=== PATIENT | male | born 1995 | race Caucasian/White ===

== ENCOUNTER 2018-12-19 22:40 | Inpatient (IN) | payer MEDICAID ==
[~2018-12-19] VITALS: Ht 172.7 cm; Wt 92.9 kg
[2018-12-20] MEDS ORDERED: morphine 4 MG/ML VIAL IV STA ×2 (06:10→07:13)
[2018-12-20] MEDS ORDERED: SOD CHLORIDE 0.9% 1,000 ML IV STA (06:10)
[2018-12-20] MEDS ORDERED: ONDANSETRON 4 MG INJ IV STA (06:10)
[2018-12-20] MEDS ORDERED: IOHEXOL 300MG/ML 150 ML BTL ONE (06:49)
[2018-12-20] MEDS ORDERED: SOD CHLORIDE 0.9% 100 ML ONE (06:49)
--- NOTE | 2018-12-20 07:10 | EN ---
Date/Time of Note Date/Time of Note DATE: 12/20/18 TIME: 07:08 ER Progress Note I evaluated the patient along with the PA staff. History and evaluation c/w appendicitis. IV abx initiated. Arrangements made with the hospitalists for admission. Dr. Reeder, surgeon stone circular sawyer notified for consultation MIKAELA PARKER Dec 20, 2018 07:10
--- NOTE | 2018-12-20 07:23 | ERD ---
ER Documentation Chief Complaint Chief Complaint C/O RT SIDED AP W/ N/V/D SINCE YESTERDAY HPI 23-year-old male presenting with right-sided abdominal pain with nausea and vomiting times 1 day. Patient had tactile fevers at home. Patient is wanting medications. He describes the pain is mid abdominal extending to the right lower quadrant. Denies other medical problems. NKDA. Surgical history denies. Social history denies ROS All systems reviewed and are negative except as per history of present illness. Allergies Allergies: Coded Allergies: No Known Allergy (Unverified , 12/19/18) PMhx/Soc Medical and Surgical Hx: pt denies Medical Hx, pt denies Surgical Hx Hx Alcohol Use: Yes Hx Substance Use: Yes Hx Tobacco Use: No FmHx Family History: No diabetes, No coronary disease, No other Physical Exam Vitals Vital Signs Date Temp Pulse Resp B/P (MAP) Pulse Ox O2 O2 Flow FiO2 Time Delivery Rate 12/19/18 99.9 109 19 143/81 97 23:00 (101) Physical Exam GENERAL: The patient is well-appearing, well-nourished, in no acute distress CHEST: Clear to auscultation bilaterally. There are no rales, wheezes or rhonchi. HEART: Regular rate and rhythm. No murmurs, clicks, rubs or gallops. ABDOMEN: Normal active bowel sounds. No distention. No organomegaly. Tender t o palpation in the right lower quadrant with rebound tenderness. BACK: CVA tenderness. No flank tenderness SKIN: No rashes Result Diagram: 12/20/18 0640 Results 24 hrs Laboratory Tests Test 12/20/18 06:40 White Blood Count 23.8 10^3/ul Red Blood Count 5.04 10^6/ul Hemoglobin 16.0 g/dl Hematocrit 46.4 % Mean Corpuscular Volume 92.1 fl Mean Corpuscular Hemoglobin 31.7 pg Mean Corpuscular Hemoglobin Concent 34.5 g/dl Red Cell Distribution Width 12.1 % Platelet Count 320 10^3/UL Mean Platelet Volume 10.2 fl Immature Granulocytes % 0.900 % Neutrophils % 80.4 % Lymphocytes % 8.4 % Monocytes % 10.0 % Eosinophils % 0.0 % Basophils % 0.3 % Nucleated Red Blood Cells % 0.0 /100WBC Immature Granulocytes # 0.210 10^3/ul Neutrophils # 19.2 10^3/ul Lymphocytes # 2.0 10^3/ul Monocytes # 2.4 10^3/ul Eosinophils # 0.0 10^3/ul Basophils # 0.1 10^3/ul Nucleated Red Blood Cells # 0.0 10^3/ul Current Medications Medications Dose Sig/Charleen Start Time Status Last (Trade) Ordered Route PRN Stop Time Admin Dose Reason Admin Sodium 1,000 ml @ Q1H STAT 12/20/18 DC 12/20/18 Chloride 1,000 mls/hr IV 06:10 06:35 12/20/18 07:09 Morphine 4 mg ONCE STAT 12/20/18 DC 12/20/18 Sulfate IV 06:10 06:35 (morphine) 12/20/18 06:12 Ondansetron 4 mg ONCE STAT 12/20/18 DC 12/20/18 HCl (Zofran IV 06:10 06:35 Inj) 12/20/18 06:12 IV Flush 10 ml STK-MED 12/20/18 DC (NS 10 ml) ONCE .ROUTE 06:49 12/20/18 06:50 Sodium 100 ml @ ud STK-MED 12/20/18 DC Chloride ONCE .ROUTE 06:49 12/20/18 06:50 Iohexol 150 ml STK-MED 12/20/18 DC (Omnipaque ONCE .ROUTE 06:49 300mg/ ml) 12/20/18 06:50 Piperacillin 100 ml @ ONCE ONCE 12/20/18 Sod/ 200 mls/hr IVPB 07:30 Tazobactam 12/20/18 07:59 Sod Morphine 4 mg ONCE STAT 12/20/18 DC Sulfate IV 07:13 (morphine) 12/20/18 07:14 Procedures/MDM DIAGNOSTIC IMAGING REPORT Patient: JUAN MIGUEL MCCLELLAND : 1995 Age: 23 Sex: M MR #: [id number] DOS: 12/20/18609 Ordering MD: AMOR WHITFIELD PA-C Location: E/R Room/Bed: PROCEDURE: CT Abdomen and pelvis with contrast. CLINICAL INDICATION: Abdominal pain TECHNIQUE: CT scan of the abdomen and pelvis with contrast was performed on a multidetector high-resolution CT scan. The patient was scanned following the uncomplicated intravenous administration of 100 ml Omnipaque-300. Coronal and sagittal reformatted images were obtained from the axial source images. Standard CT of the abdomen pelvis with contrast protocols were performed. The total exam CTDI equals 13.89 mGy and the total exam DLP equals 844.03 mGy- cm. One or more of the following dose reduction techniques were used: - Automated exposure control. - Adjustment of the mA and/or kV according to patient size. Use of iterative reconstruction technique. Dicom images are available COMPARISON: None. FINDINGS: Dilated appendix maximal transverse diameter 2 cm with mild thickened enhancing wall and to appendicoliths with mild periappendiceal induration/stranding and tr robyn fluid consistent with acute appendicitis. Additional small free fluid seen in the inferior abdominal cavity. No localized fluid collection to suggest abscess. Negative free air. No abdominal pelvic lymphadenopathy. Stomach, small bowel and large bowel unremarkable. Liver spleen pancreas adrenal glands and gallbladder unremarkable. No biliary ductal dilation. Kidneys normal in size without calcified calculi hydronephrosis or intra masses bilaterally. No ureteral calcified calculi or dilatation. Contracted urinary bladder otherwise unremarkable. Prostate unremarkable. Lung bases unremarkable. Aorta unremarkable. Abdominal pelvic wall unremarkable. Osseous structures unremarkable without acute osseous findings are osteoblastic/osteolytic lesions. IMPRESSION: 1. Acute appendicitis as described above without free air abscess. 2. Small free fluid in the inferior abdominal cavity. 3. No calcified urinary calculi or obstructive uropathy. Addendum: Physician assistant Duran was telephoned this results on 12/20/2018 at of 0704 hours. ER Course: 1L normal saline given ED. IV morphine given in the ED. Zosyn given ED. Dr. Elliott was alerted of appendicitis diagnosis and will facilitate an admission. Patient stable at time of admission MDM: 23-year-old male presenting with abdominal pain. Patient has findings consistent with appendicitis on CT scan. Patient stable. Patient will be admitted for surgical consultation and higher level of care. I have low suspicion for sepsis. All questions answered at discharge. MELANIA WHITFIELD PA-C Dec 20, 2018 07:23
[2018-12-20] MEDS ORDERED: PIPER-TAZO 3.375 GM IV (PMX) 100 ML IVPB ONE (07:30)
[2018-12-20 09:30] VITALS: BP 135/75; PULSE 95; RESP 18
[2018-12-20 10:45] VITALS: Ht 172.7 cm; Wt 92.9 kg
[2018-12-20] MEDS ORDERED: LORAZEPAM 2 MG INJ IV PRN (11:30)
[2018-12-20] MEDS ORDERED: hydrALAzine 20 MG INJ IV PRN (11:30)
[2018-12-20] MEDS ORDERED: DOCUSATE SODIUM 100 MG CAP PO PRN (11:30)
[2018-12-20] MEDS ORDERED: NITROGLYCERIN (SL) 0.4 MG TAB SL PRN (11:30)
[2018-12-20] MEDS ORDERED: ALBUTEROL/IPRATROPIUM (NEB) 3 ML AMP HHN PRN (11:30)
[2018-12-20] MEDS ORDERED: NACL 0.9% 3 ML SYG IV SCH (11:30)
[2018-12-20] MEDS: morphine 2 MG INJ IV PRN ×2 (12:47→17:19)
[2018-12-20] MEDS: SOD CHLORIDE 0.9% 1,000 ML IV SCH ×2 (12:57→21:07)
[2018-12-20] MEDS: PIPER-TAZO 3.375 GM IV (PMX) 100 ML IVPB SCH ×2 (12:57→17:57)
--- NOTE | 2018-12-20 13:38 | HP ---
Date/Time of Note Date/Time of Note DATE: 12/20/18 TIME: 13:36 Assessment/Plan VTE Prophylaxis SCD applied (from Nsg): No SCD contraindicated: other Pharmacological prophylaxis: heparin Lines/Catheters IV Catheter Type (from Nrsg): Saline Lock Assessment/Plan Hospital Course Assessment and plan: 23-year-old male coming with abdominal pain nausea vomiting for 1 day with findings of acute appendicitis. #Abdominal pain: Again secondary to acute appendicitis this was final CT scan. Patient also has leukocytosis, although no findings on CT scan of perforation -Continue IV fluids, pain control medications, follow-up TSH, A1c, lipid panel -Continue antibiotics, follow-up surgery recommendations as they have been consulted Result Diagram: 12/20/18 0640 12/20/18 0640 Results 24hrs Laboratory Tests Test 12/20/18 04:57 12/20/18 06:40 12/20/18 07:00 Urine Color NKECHI Urine Clarity SLIGHTLY CLOUDY A Urine pH 6.0 Urine Specific [place] 1.028 Urine Ketones TRACE A Urine Nitrite NEGATIVE Urine Bilirubin NEGATIVE Urine Urobilinogen 2+ H Urine Leukocyte Esterase NEGATIVE Urine Microscopic RBC 92 H Urine Microscopic WBC 3 Urine Mucus MODERATE Urine Hemoglobin 2+ H Urine Glucose NEGATIVE Urine Total Protein 1+ H White Blood Count 23.8 H Red Blood Count 5.04 Hemoglobin 16.0 Hematocrit 46.4 Mean Corpuscular Volume 92.1 Mean Corpuscular Hemoglobin 31.7 Mean Corpuscular 34.5 Hemoglobin Concent Red Cell Distribution Width 12.1 Platelet Count 320 Mean Platelet Volume 10.2 Immature Granulocytes % 0.900 H Neutrophils % 80.4 H Lymphocytes % 8.4 L Monocytes % 10.0 Eosinophils % 0.0 Basophils % 0.3 Nucleated Red Blood Cells % 0.0 Immature Granulocytes # 0.210 H Neutrophils # 19.2 H Lymphocytes # 2.0 Monocytes # 2.4 H Eosinophils # 0.0 Basophils # 0.1 Nucleated Red Blood Cells # 0.0 Sodium Level 143 Potassium Level 3.8 Chloride Level 102 Carbon Dioxide Level 28 Anion Gap 13 Blood Urea Nitrogen 13 Creatinine 0.69 Est Glomerular Filtrat > 60 Rate mL/min Glucose Level 147 Calcium Level 10.2 Total Bilirubin 1.4 H Direct Bilirubin 0.00 Indirect Bilirubin 1.4 H Aspartate Amino 29 Transf (AST/SGOT) Alanine 40 Aminotransferase (ALT/SGPT) Alkaline Phosphatase 78 Total Protein 8.9 H Albumin 5.0 H Globulin 3.90 H Albumin/Globulin Ratio 1.28 Lipase 325 H Free Thyroxine 0.99 HPI/ROS Admit Date/Time Admit Date/Time Dec 20, 2018 at 07:10 Hx of Present Illness 23-year-old male with no significant past medical history who comes in pre senting with right-sided abdominal pain. Patient also had some nonbilious nonbloody vomiting and with nausea times 1 day. Patient states he took his temperature at home and it was as high as 100.3. No upper or lower GI bleeding, diarrhea constipation, chest pain or shortness of breath. The patient came in today he had a CT scan performed that showed signs of acute appendicitis without any free air abscess noted. A call was made out to surgery team to come evaluate the patient. Patient's white blood cell count was also elevated and patient was given IV antibiotics as well. PMH/Family/Social Past Medical History Medications Current Medications IV Flush (NS 3 ml) 3 ml PER PROTOCOL IV ; Start 12/20/18 at 11:30 Ondansetron HCl (Zofran Inj) 4 mg Q6H PRN IV NAUSEA/VOMITING; Start 12/20/18 at 11:30 Acetaminophen (Tylenol Tab) 650 mg Q6H PRN PO .PAIN 1-3 OR TEMP; Start 12/20/18 at 11:30 Acetaminophen/ Hydrocodone Bitart ([place] (5/325)) 1 tab Q6H PRN PO .MOD PAIN 4- 6; Start 12/20/18 at 11:30 Morphine Sulfate (morphine) 2 mg Q4H PRN IV .SEVERE PAIN 7-10 Last administered on 12/20/18at 12:47; Admin Dose 2 MG; Start 12/20/18 at 11:30 Docusate Sodium (Colace) 100 mg Q12H PRN PO .CONSTIPATION; Start 12/20/18 at 11:30 Magnesium Hydroxide (Milk Of Mag) 30 ml DAILY PRN PO .CONSTIPATION; Start 12/20/18 at 11:30 Heparin Sodium (Porcine) (Heparin (5000 Units/1ml)) 5,000 unit Q12 SC ; Start 12/20/18 at 21:00 Lorazepam (Ativan) 0.5 mg Q6H PRN IV ANXIETY; Start 12/20/18 at 11:30 Sodium Chloride 1,000 ml @ 100 mls/hr Q10H IV Last administered on 12/20/18at 12:57; Admin Dose 100 MLS/HR; Start 12/20/18 at 11:07 Albuterol/ Ipratropium (Duoneb) 3 ml Q4H RESP THERAPY PRN HHN SHORTNESS OF BREATH; Start 12/20/18 at 11:30 Piperacillin Sod/ Tazobactam Sod 100 ml @ 200 mls/hr Q6 IVPB Last administered on 12/20/18at 12:57; Admin Dose 200 MLS/HR; Start 12/20/18 at 12:00 Hydralazine HCl (Apresoline) 10 mg Q6H PRN IV ELEVATED BLOOD PRESSURE; Start 12/20/18 at 11:30 Nitroglycerin (Nitroglycerin (Sl Tab) 0.4 Mg) 1 tab Q5M PRN SL ANGINA; Start 12/20/18 at 11:30 Coded Allergies: No Known Allergy (Unverified , 12/19/18) Past Surgical History Past Surgical Hx: other (Unknown) Family History Significant Family History: no pertinent family hx Social History Alcohol Use: none Smoking Status: Never smoker Drug Use: none Exam/Review of Systems Vital Signs Vitals Vital Signs Date Temp Pulse Resp B/P (MAP) Pulse Ox O2 O2 Flow FiO2 Time Delivery Rate 12/20/18 98.9 95 18 135/75 98 Room Air 09:30 (95) Exam Exam GENERAL: Lying in bed, in no acute distress Neck: Supple Respiratory: Clear to auscultation bilaterally. There are no rales, wheezes or rhonchi. HEART: Regular rate and rhythm. No murmurs, clicks, rubs or gallops. ABDOMEN: Normal active bowel sounds. No distention. No organomegaly. Tender to palpation in the right lower quadrant with rebound tenderness. M/S: No lower extremity edema bilaterally Neuro: No focal deficits MIRANDA LAND Dec 20, 2018 13:38
[2018-12-20 14:35] VITALS: BP 136/75; PULSE 105; RESP 19
[2018-12-20] MEDS: ACETAMINOPHEN 325 MG TAB PO PRN (14:49)
[2018-12-20] MEDS: HYDROCODONE/APAP (5/325) TAB PO PRN (15:56)
[2018-12-20] MEDS: ONDANSETRON 4 MG INJ IV PRN (19:45)
[2018-12-20 20:00] VITALS: BP_SYST 128; BP_SYST 144; BP_DIAS 60; BP_DIAS 78; PULSE 105; PULSE 66; RESP 18; RESP 19
[2018-12-20] MEDS: HEPARIN 5,000 UNIT/1 ML VIAL SC SCH (20:11)
[2018-12-20] MEDS ORDERED: BUPIVACAINE 0.25%/EPI (SDV) 30 ML INJ ONE (20:41)
[2018-12-20] MEDS ORDERED: LIDOCAINE 1% (MPF) 30 ML INJ ONE (20:41)
--- NOTE | 2018-12-20 20:54 | CONS ---
Assessment/Plan Assessment/Plan Hospital Course (Demo Recall) 1. Acute abdominal pain 2. Acute nausea vomiting 3. Acute leukocytosis 4. CT with appendicitis and appendicolith (possibly perforated) -IV antibiotics -IV fluids -N.p.o. -OR for appendectomy 5. BMI 31 -Encourage nutrition and exercise optimization eventually 6. Regular alcohol use with history of alcohol poisoning -Highly encouraged cessation 7. Abnormal bilirubin and amylase may be secondary to acute process -Trend Thank you very much for consulting me in this patient's care, Consultation Date/Type/Reason Admit Date/Time Dec 20, 2018 at 07:10 Date of Consultation: Dec 20, 2018 Type of Consult General surgical Reason for Consultation Abdominal pain Leukocytosis Appendicitis and appendicolith Requesting Provider: MIKAELA PARKER Date/Time of Note DATE: 12/20/18 TIME: 20:53 Hx of Present Illness Sha Mckeon is a 23-year-old male with abdominal pain that started sharp and crampy on without any previous history of the same. Pain is mostly in the right side and associated with nonbloody non-bilious vomiting nausea. He had fever with chills. No change in bowel habits, no shortness of breath, no chest pain, no cough, no seizure, no visual or neurologic changes. No dysuria. No trauma or sick contacts. Patient not hungry. He presented today and was found to have significant leukocytosis and CT diagnosis of acute appendicitis with appendicolith. He is admitted placed on antibiotic and surgical consult is obtained further evaluation and treatment. 12 point review of system negative unless addressed in chart Past Medical History BMI 31 Drinks alcohol every other day with history of alcohol poisoning in the past Acute leukocytosis Acute abdominal pain Acute appendicitis with appendicolith possible perforation Elevated lipase Elevated bilirubin Medications Current Medications IV Flush (NS 3 ml) 3 ml PER PROTOCOL IV ; Start 12/20/18 at 11:30 Ondansetron HCl (Zofran Inj) 4 mg Q6H PRN IV NAUSEA/VOMITING Last administered on 12/20/18at 19:45; Admin Dose 4 MG; Start 12/20/18 at 11:30 Acetaminophen (Tylenol Tab) 650 mg Q6H PRN PO .PAIN 1-3 OR TEMP Last administered on 12/20/18at 14:49; Admin Dose 650 MG; Start 12/20/18 at 11:30 Acetaminophen/ Hydrocodone Bitart ([place] (5/325)) 1 tab Q6H PRN PO .MOD PAIN 4- 6 Last administered on 12/20/18at 15:56; Admin Dose 1 TAB; Start 12/20/18 at 11:30 Morphine Sulfate (morphine) 2 mg Q4H PRN IV .SEVERE PAIN 7-10 Last administered on 12/20/18at 17:19; Admin Dose 2 MG; Start 12/20/18 at 11:30 Docusate Sodium (Colace) 100 mg Q12H PRN PO .CONSTIPATION; Start 12/20/18 at 11:30 Magnesium Hydroxide (Milk Of Mag) 30 ml DAILY PRN PO .CONSTIPATION; Start 12/20/18 at 11:30 Heparin Sodium (Porcine) (Heparin (5000 Units/1ml)) 5,000 unit Q12 SC ; Start 12/20/18 at 21:00 Lorazepam (Ativan) 0.5 mg Q6H PRN IV ANXIETY; Start 12/20/18 at 11:30 Sodium Chloride 1,000 ml @ 100 mls/hr Q10H IV Last administered on 12/20/18at 12:57; Admin Dose 100 MLS/HR; Start 12/20/18 at 11:07 Albuterol/ Ipratropium (Duoneb) 3 ml Q4H RESP THERAPY PRN HHN SHORTNESS OF BREATH; Start 12/20/18 at 11:30 Piperacillin Sod/ Tazobactam Sod 100 ml @ 200 mls/hr Q6 IVPB Last administered on 12/20/18at 17:57; Admin Dose 200 MLS/HR; Start 12/20/18 at 12:00 Hydralazine HCl (Apresoline) 10 mg Q6H PRN IV ELEVATED BLOOD PRESSURE; Start 12/20/18 at 11:30 Nitroglycerin (Nitroglycerin (Sl Tab) 0.4 Mg) 1 tab Q5M PRN SL ANGINA; Start 12/20/18 at 11:30 Allergies: Coded Allergies: No Known Allergy (Unverified , 12/19/18) Past Surgical History Past Surgical Hx: no surgical history, other (Unknown) Family History Significant Family History: no pertinent family hx 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 , 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 Alcohol Use: other (2 or 3 drinks every other day) Smoking Status: Never smoker Drug Use: none, marijuana (Social) Exam/Review of Systems Exam Vitals Vital Signs Date Temp Pulse Resp B/P (MAP) Pulse Ox O2 O2 Flow FiO2 Time Delivery Rate 12/20/18 102.9 105 18 144/78 97 20:00 (100) 12/20/18 Room Air 14:35 Constitutional: alert, oriented, obese; No distress Psych: nl mood/affect; No anxiety Head: normocephalic, atraumatic Eyes: nl conjunctiva, EOMI, nl sclera, PERRL ENMT: nl external ears & nose, nl lips & teeth, nl nasal mucosa & septum Neck: supple, non-tender; No jvd Respiratory: normal air movement; No congested cough, No labored breathing, No wheezing Cardiovascular: regular rate and rhythm; No edema Gastrointestinal: soft, rebound or guarding, tender; No firm Genitourinary - Male: nl penis, nl scrotum Musculoskeletal: nl extremities to inspection; No joint tenderness Extremities: normal pulses; No calf tenderness, No edema Neurological: nl mental status, nl speech, nl strength Skin: nl turgor; No rash or lesions, No diaphoresis Lymph: nl lymph nodes, nontender Results Result Diagram: 12/20/18 0640 12/20/18 0640 Results 24hrs Laboratory Tests Test 12/20/18 04:57 12/20/18 06:40 12/20/18 07:00 12/20/18 13:18 Urine Color NKECHI Urine Clarity SLIGHTLY CLOUDY A Urine pH 6.0 Urine Specific 1.028 [place] Urine Ketones TRACE A Urine Nitrite NEGATIVE Urine Bilirubin NEGATIVE Urine 2+ H Urobilinogen Urine Leukocyte NEGATIVE Esterase Urine Microscopic 92 H RBC Urine Microscopic 3 WBC Urine Mucus MODERATE Urine Hemoglobin 2+ H Urine Glucose NEGATIVE Urine Total 1+ H Protein White Blood Count 23.8 H Red Blood Count 5.04 Hemoglobin 16.0 Hematocrit 46.4 Mean Corpuscular 92.1 Volume Mean Corpuscular 31.7 Hemoglobin Mean Corpuscular 34.5 Hemoglobin Concen t Red Cell 12.1 Distribution Width Platelet Count 320 Mean Platelet 10.2 Volume Immature 0.900 H Granulocytes % Neutrophils % 80.4 H Lymphocytes % 8.4 L Monocytes % 10.0 Eosinophils % 0.0 Basophils % 0.3 Nucleated Red 0.0 Blood Cells % Immature 0.210 H Granulocytes # Neutrophils # 19.2 H Lymphocytes # 2.0 Monocytes # 2.4 H Eosinophils # 0.0 Basophils # 0.1 Nucleated Red 0.0 Blood Cells # Sodium Level 143 Potassium Level 3.8 Chloride Level 102 Carbon Dioxide 28 Level Anion Gap 13 Blood Urea 13 Nitrogen Creatinine 0.69 Est Glomerular > 60 Filtrat Rate mL/min Glucose Level 147 Calcium Level 10.2 Total Bilirubin 1.4 H Direct Bilirubin 0.00 Indirect 1.4 H Bilirubin Aspartate Amino 29 Transf (AST/SGOT) Alanine 40 Aminotransferase (ALT/SGPT) Alkaline 78 Phosphatase Total Protein 8.9 H Albumin 5.0 H Globulin 3.90 H Albumin/Globulin 1.28 Ratio Lipase 325 H Free Thyroxine 0.99 Prothrombin Time 14.6 Prothrombin Time 1.1 Ratio INR International 1.13 Normalized Ratio Activated 33.0 Partial Thrombopl ast Time Medications Medication Current Medications IV Flush (NS 3 ml) 3 ml PER PROTOCOL IV ; Start 12/20/18 at 11:30 Ondansetron HCl (Zofran Inj) 4 mg Q6H PRN IV NAUSEA/VOMITING Last administered on 12/20/18at 19:45; Admin Dose 4 MG; Start 12/20/18 at 11:30 Acetaminophen (Tylenol Tab) 650 mg Q6H PRN PO .PAIN 1-3 OR TEMP Last administered on 12/20/18at 14:49; Admin Dose 650 MG; Start 12/20/18 at 11:30 Acetaminophen/ Hydrocodone Bitart ([place] (5/325)) 1 tab Q6H PRN PO .MOD PAIN 4- 6 Last administered on 12/20/18at 15:56; Admin Dose 1 TAB; Start 12/20/18 at 11:30 Morphine Sulfate (morphine) 2 mg Q4H PRN IV .SEVERE PAIN 7-10 Last administered on 12/20/18at 17:19; Admin Dose 2 MG; Start 12/20/18 at 11:30 Docusate Sodium (Colace) 100 mg Q12H PRN PO .CONSTIPATION; Start 12/20/18 at 11:30 Magnesium Hydroxide (Milk Of Mag) 30 ml DAILY PRN PO .CONSTIPATION; Start 12/20/18 at 11:30 Heparin Sodium (Porcine) (Heparin (5000 Units/1ml)) 5,000 unit Q12 SC ; Start 12/20/18 at 21:00 Lorazepam (Ativan) 0.5 mg Q6H PRN IV ANXIETY; Start 12/20/18 at 11:30 Sodium Chloride 1,000 ml @ 100 mls/hr Q10H IV Last administered on 12/20/18at 12:57; Admin Dose 100 MLS/HR; Start 12/20/18 at 11:07 Albuterol/ Ipratropium (Duoneb) 3 ml Q4H RESP THERAPY PRN HHN SHORTNESS OF BREATH; Start 12/20/18 at 11:30 Piperacillin Sod/ Tazobactam Sod 100 ml @ 200 mls/hr Q6 IVPB Last administered on 12/20/18at 17:57; Admin Dose 200 MLS/HR; Start 12/20/18 at 12:00 Hydralazine HCl (Apresoline) 10 mg Q6H PRN IV ELEVATED BLOOD PRESSURE; Start 12/20/18 at 11:30 Nitroglycerin (Nitroglycerin (Sl Tab) 0.4 Mg) 1 tab Q5M PRN SL ANGINA; Start 12/20/18 at 11:30 AMY ARAGON MD Dec 20, 2018 20:54
[2018-12-20] MEDS ORDERED: ACETAMINOPHEN 1000MG/100ML IV 100 ML IVPB ONE (21:00)
--- NOTE | 2018-12-20 22:53 | PREAC ---
Date/Time of Note Date/Time of Note DATE: 12/20/18 TIME: 22:53 Anesthesia Eval and Record Evaluation Time Pre-Procedure Interview DATE: 12/20/18 TIME: 22:53 Age 23 Sex male NPO: 8 hrs Preoperative diagnosis appendicitis Planned procedure Lap appy Past Medical History Past Medical History: Includes GI: Obesity Surgery & Anesthesia Issues No known issue Meds Anticoagulation: No Beta Poncho within 24 hr: No Reason Beta Poncho not given: Pt. not on B-Poncho Current Medications IV Flush (NS 3 ml) 3 ml PER PROTOCOL IV ; Start 12/20/18 at 11:30 Ondansetron HCl (Zofran Inj) 4 mg Q6H PRN IV NAUSEA/VOMITING Last administered on 12/20/18at 19:45; Admin Dose 4 MG; Start 12/20/18 at 11:30 Acetaminophen (Tylenol Tab) 650 mg Q6H PRN PO .PAIN 1-3 OR TEMP Last administered on 12/20/18at 14:49; Admin Dose 650 MG; Start 12/20/18 at 11:30 Acetaminophen/ Hydrocodone Bitart ([place] (5/325)) 1 tab Q6H PRN PO .MOD PAIN 4- 6 Last administered on 12/20/18at 15:56; Admin Dose 1 TAB; Start 12/20/18 at 11:30 Morphine Sulfate (morphine) 2 mg Q4H PRN IV .SEVERE PAIN 7-10 Last administered on 12/20/18at 17:19; Admin Dose 2 MG; Start 12/20/18 at 11:30 Docusate Sodium (Colace) 100 mg Q12H PRN PO .CONSTIPATION; Start 12/20/18 at 11:30 Magnesium Hydroxide (Milk Of Mag) 30 ml DAILY PRN PO .CONSTIPATION; Start 12/20/18 at 11:30 Heparin Sodium (Porcine) (Heparin (5000 Units/1ml)) 5,000 unit Q12 SC ; Start 12/20/18 at 21:00 Lorazepam (Ativan) 0.5 mg Q6H PRN IV ANXIETY; Start 12/20/18 at 11:30 Sodium Chloride 1,000 ml @ 100 mls/hr Q10H IV Last administered on 12/20/18at 12:57; Admin Dose 100 MLS/HR; Start 12/20/18 at 11:07 Albuterol/ Ipratropium (Duoneb) 3 ml Q4H RESP THERAPY PRN HHN SHORTNESS OF BREATH; Start 12/20/18 at 11:30 Piperacillin Sod/ Tazobactam Sod 100 ml @ 200 mls/hr Q6 IVPB Last administered on 12/20/18at 17:57; Admin Dose 200 MLS/HR; Start 12/20/18 at 12:00 Hydralazine HCl (Apresoline) 10 mg Q6H PRN IV ELEVATED BLOOD PRESSURE; Start 12/20/18 at 11:30 Nitroglycerin (Nitroglycerin (Sl Tab) 0.4 Mg) 1 tab Q5M PRN SL ANGINA; Start 12/20/18 at 11:30 Meds reviewed: Yes Allergies Coded Allergies: No Known Allergy (Unverified , 12/19/18) Allergies Reviewed: Yes Labs/Studies Labs Reviewed: Reviewed by anesthesiologist Result Diagram: 12/20/18 0640 12/20/18 0640 Laboratory Tests 12/20/18 06:40 test: N/A Pre-procedure Exam Last vitals Vital Signs Date Temp Pulse Resp B/P (MAP) Pulse Ox O2 O2 Flow FiO2 Time Delivery Rate 12/20/18 98.8 66 19 128/60 96 20:00 (82) 12/20/18 Room Air 14:35 Airway: Adequate mouth opening, Adequate thyromental dist Mallampati: Mallampati II Teeth: Normal Lung: Normal Heart: Normal ASA Physical Status ASA physical status: 2 Emergency: None Planned Anesthetic General/MAC: ETT Nerve block: TAP (bilateral) Pre-operative Attestations Prior to commencing anesthesia and surgery, the patient was re-evaluated, there was verification of: *The patient's identity *The results of appropriate recent lab work and preoperative vital signs *The above evaluation not changing prior to induction *Anesthetic plan, risk benefits, alternative and complications discussed with patient/family; questions answered; patient/family understands, accepts and wishes to proceed. MAYANK SALGUERO Dec 20, 2018 22:53
[2018-12-20] MEDS ORDERED: ALBUTEROL 0.083% (NEB) 2.5 MG/3 ML AMP HHN PRN (23:00)
[2018-12-20] MEDS ORDERED: ONDANSETRON 4 MG INJ IV PRN (23:00)
[2018-12-20] MEDS ORDERED: HYDROmorphONE 1 MG/5 ML IV SYRINGE IV PRN ×3 (23:00)
[2018-12-20] MEDS ORDERED: DIPHENHYDRAMINE 50 MG INJ IV PRN (23:00)
[2018-12-20] MEDS ORDERED: FENTAnyl 50 MCG/ML VIAL IV PRN ×3 (23:00)
[2018-12-20] MEDS ORDERED: MEPERIDINE 25 MG INJ IV PRN (23:00)
[2018-12-20] MEDS ORDERED: METOCLOPRAMIDE 10 MG INJ IV PRN (23:00)
[2018-12-20] MEDS ORDERED: ROPIVACAINE 0.5 % 30 ML VIAL ONE (23:11)
[2018-12-20] MEDS ORDERED: FENTAnyl 50 MCG/ML VIAL ONE (23:11)
--- NOTE | 2018-12-20 23:37 | OPR ---
Date/Time of Note Date/Time of Note DATE: 12/20/18 TIME: 23:37 Operative Report Free Text/Dictation Preoperative Diagnosis 1. Acute appendicitis with appendicolith and probable perforation 2. BMI 31 Postoperative Diagnosis 1. Acute appendicitis with appendicolith and perforation with at least 300 mL's of pus throughout the abdomen 2. Gangrenous appendix 3. BMI 31 Operation Performed 1. Laparoscopic appendectomy and washout 2. Local [place], [address] Surgeon: AMY ARAGON MD Host/Hostess Restaurant: None Anesthesia: general (Plus local plus regional) Anesthesiologist: Taye Lipscomb MD Estimated Blood Loss: 10 ml's Specimens: Appendix Tubes/Drains 19 F Francisco Complications: None Pt Condition Post Procedure: stable Disposition: PACU Indications: Per consult note. Risks include but are not limited to bleeding, infection, abscess, seroma, leak, damage to intestines or any intra-abdominal/intrapelvic structures, hernia formation, chronic pain, need for re-operations or further surgeries, KS, stroke, PE, DVT, pneumonia, organ failures, or even . Procedure Note: Patient was brought into the operating room, placed supine on the operating table, SCDs were placed, left arm was tucked, all pressure points were well- padded, preoperative antibiotics administered, and after induction of anesthesia, patient was prepped and draped in usual sterile fashion, and timeout was performed. Incision was made supraumbilically and the Veress needle was safely place into the abdomen. After negative sip test, abdomen was insufflated to 15 mmHg with CO2. At this point Veress was removed and the 5 mm blunt trocar was placed into the abdomen. Laparoscopy was performed and no injuries were identified using a 5 mm 30 scope. Under direct visualization another 5 mm port was placed and left lower quadrant and 12 mm port and suprapubic region avoiding the bladder. All incision sites were injected with quarter percent Marcaine with 1% lidocaine with epi. There is pus throughout the abdomen which was immediately suctioned out and through the course of the operation several liters of warm saline were used for irrigation and suctioning of the fluid throughout the abdomen. Patient was placed in Trendelenburg and right side up. The appendix was found to be gangrenously inflamed with evidence of perforation. The base was dean sected using Endo LOUIS white load automatic 35 mm stapler just on the cecum. The trevor were fired fully. The mesoappendix was transected with another white load stapler. Hemostasis was fully obtained. The appendix was placed in an Endo Catch bag and removed through the suprapubic port site. That fascia was closed with Endo Close and 0 Vicryl in a [id number] manner avoiding the bladder. 19 [place] Francisco was placed to the left lower quadrant into the pelvis and right gutter and secured with 2-0 nylon. Ports and CO2 were removed under direct visualization, wounds were fully irrigated, and skin was closed with skin trevor. Dressings were applied. All counts were correct and the end of the operation 2. Patient was extubated and transferred to recovery room in stable condition. AMY ARAGON MD Dec 20, 2018 23:37
[2018-12-21] VITALS (16 sets, daily range): BP systolic 137–164; BP diastolic 63–83; PULSE 86–120; RESP 15–24
[2018-12-21] MEDS ORDERED: PROPOFOL 20 ML ONE (00:10)
[2018-12-21] MEDS ORDERED: SUCCINYLCHOLINE CHLORIDE 100 MG/5 ML SYG IV ONE (00:10)
[2018-12-21] MEDS ORDERED: FENTAnyl 50 MCG/ML VIAL ONE (00:10)
[2018-12-21] MEDS ORDERED: ROCURONIUM 50 MG INJ ONE (00:10)
[2018-12-21] MEDS ORDERED: LIDOCAINE 100 MG SYRINGE ONE (00:10)
[2018-12-21] MEDS ORDERED: SUGAMMADEX SODIUM 200 MG/2 ML VIAL IV ONE (00:10)
[2018-12-21] MEDS: ONDANSETRON 4 MG INJ IV PRN (01:19)
[2018-12-21] MEDS: PIPER-TAZO 3.375 GM IV (PMX) 100 ML IVPB SCH ×6 (01:22→23:52)
[2018-12-21] MEDS: SOD CHLORIDE 0.9% 1,000 ML IV SCH ×4 (01:58→23:52)
[2018-12-21] MEDS: morphine 2 MG INJ IV PRN ×5 (04:07→20:07)
[2018-12-21] MEDS: PANTOPRAZOLE (EC) 40 MG TAB PO SCH (06:05)
[2018-12-21] MEDS: HEPARIN 5,000 UNIT/1 ML VIAL SC SCH ×2 (08:03→20:13)
[2018-12-21] MEDS: HYDROCODONE/APAP (5/325) TAB PO PRN ×2 (09:26→18:03)
--- NOTE | 2018-12-21 13:23 | PN ---
Date/Time of Note Date/Time of Note DATE: 12/21/18 TIME: 13:18 Assessment/Plan VTE Prophylaxis Risk score (from Ns)>0 risk: 2 SCD applied (from [facility]): No SCD contraindicated: other Pharmacological prophylaxis: heparin Lines/Catheters IV Catheter Type (from [facility]): Peripheral IV Assessment/Plan Hospital Course S: Patient underwent surgical operation yesterday for what turned out to be a perforated appendicitis. Patient started on clear liquid diet now O: VS- see below PE: GENERAL: Lying in bed, in no acute distress Neck: Supple Respiratory: Clear to auscultation bilaterally. There are no rales, wheezes or rhonchi. HEART: Regular rate and rhythm. No murmurs, clicks, rubs or gallops. ABDOMEN: Normal active bowel sounds. No distention. No organomegaly. LUANNE drain in place. M/S: No lower extremity edema bilaterally Neuro: No focal deficits Date/Time of Note Date/Time of Note DATE: 12/20/18 TIME: 23:37 Operative Report Free Text/Dictation Preoperative Diagnosis 1. Acute appendicitis with appendicolith and probable perforation 2. BMI 31 Postoperative Diagnosis 1. Acute appendicitis with appendicolith and perforation with at least 300 mL's of pus throughout the abdomen 2. Gangrenous appendix 3. BMI 31 Operation Performed 1. Laparoscopic appendectomy and washout 2. [place] anesthetic [place], [id number] Assessment and plan: 23-year-old male coming with abdominal pain nausea vomiting for 1 day with findings of acute appendicitis,POD # 1 appendectomy for perforated appendicitis. #Abdominal pain: Again secondary to acute appendicitis this was final CT scan- status post appendectomy for perforated appendicitis -Continue to monitor white blood cell count which is trending down, no fevers now, follow final culture results -Continue IV fluids, pain control medications, broad-spectrum antibiotics -Diet per surgery recommendations Result Diagram: 12/21/18 0613 12/21/18 0613 Results 24hrs Laboratory Tests Test 12/21/18 06:13 White Blood Count 11.6 #H Red Blood Count 4.39 L Hemoglobin 14.0 Hematocrit 41.7 L Mean Corpuscular Volume 95.0 Mean Corpuscular Hemoglobin 31.9 Mean Corpuscular Hemoglobin Concent 33.6 Red Cell Distribution Width 12.6 Platelet Count 193 # Mean Platelet Volume 10.4 Immature Granulocytes % 0.300 Neutrophils % Segmented Neutrophils % (Manual) 52 Band Neutrophils % (Manual) 36 H Lymphocytes % Lymphocytes % (Manual) 4 L Reactive Lymphocytes % (Manual) 3 H Monocytes % Monocytes % (Manual) 5 Eosinophils % Basophils % Nucleated Red Blood Cells % 0.0 Immature Granulocytes # 0.040 H Neutrophils # Neutrophils # (Manual) 6.5 Band Neutrophils # 4.1 H Lymphocytes (Manual) 0.4 L Lymphocytes # Reactive Lymphocytes # 0.3 H Monocytes # Monocytes # (Manual) 0.5 Eosinophils # Basophils # Nucleated Red Blood Cells # Platelet Estimate NORMAL Polychromasia 1+ Poikilocytosis 1+ Sodium Level 141 Potassium Level 4.3 Chloride Level 104 Carbon Dioxide Level 30 Anion Gap 7 Blood Urea Nitrogen 17 Creatinine 0.80 Est Glomerular Filtrat Rate mL/min > 60 Glucose Level 141 Hemoglobin A1c 5.3 Calcium Level 9.0 Phosphorus Level 3.4 Magnesium Level 2.1 Total Bilirubin 1.7 H Direct Bilirubin 0.00 Indirect Bilirubin 1.7 H Aspartate Amino Transf (AST/SGOT) 27 Alanine Aminotransferase (ALT/SGPT) 32 Alkaline Phosphatase 45 Total Protein 6.4 # Albumin 3.5 # Globulin 2.90 Albumin/Globulin Ratio 1.20 Triglycerides Level 45 Cholesterol Level 112 LDL Cholesterol, Calculated 60 HDL Cholesterol 43 Cholesterol/HDL Ratio 2.6 Thyroid Stimulating Hormone (TSH) 0.348 L Exam/Review of Systems Exam Vitals Vital Signs Date Temp Pulse Resp B/P (MAP) Pulse Ox O2 O2 Flow FiO2 Time Delivery Rate 12/21/18 99.2 97 20 155/80 95 07:53 (105) 12/21/18 3.0 02:41 12/21/18 Nasal 01:47 Cannula Intake and Output 12/20/18 12/20/18 12/21/18 1515:00 23:00 07:00 IntakeIntake Total 100 ml 100 ml 1520 ml OutputOutput Total 595 ml BalanceBalance 100 ml 100 ml 925 ml Results Results 24hrs Laboratory Tests Test 12/21/18 06:13 White Blood Count 11.6 #H Red Blood Count 4.39 L Hemoglobin 14.0 Hematocrit 41.7 L Mean Corpuscular Volume 95.0 Mean Corpuscular Hemoglobin 31.9 Mean Corpuscular Hemoglobin Concent 33.6 Red Cell Distribution Width 12.6 Platelet Count 193 # Mean Platelet Volume 10.4 Immature Granulocytes % 0.300 Neutrophils % Segmented Neutrophils % (Manual) 52 Band Neutrophils % (Manual) 36 H Lymphocytes % Lymphocytes % (Manual) 4 L Reactive Lymphocytes % (Manual) 3 H Monocytes % Monocytes % (Manual) 5 Eosinophils % Basophils % Nucleated Red Blood Cells % 0.0 Immature Granulocytes # 0.040 H Neutrophils # Neutrophils # (Manual) 6.5 Band Neutrophils # 4.1 H Lymphocytes (Manual) 0.4 L Lymphocytes # Reactive Lymphocytes # 0.3 H Monocytes # Monocytes # (Manual) 0.5 Eosinophils # Basophils # Nucleated Red Blood Cells # Platelet Estimate NORMAL Polychromasia 1+ Poikilocytosis 1+ Sodium Level 141 Potassium Level 4.3 Chloride Level 104 Carbon Dioxide Level 30 Anion Gap 7 Blood Urea Nitrogen 17 Creatinine 0.80 Est Glomerular Filtrat Rate mL/min > 60 Glucose Level 141 Hemoglobin A1c 5.3 Calcium Level 9.0 Phosphorus Level 3.4 Magnesium Level 2.1 Total Bilirubin 1.7 H Direct Bilirubin 0.00 Indirect Bilirubin 1.7 H Aspartate Amino Transf (AST/SGOT) 27 Alanine Aminotransferase (ALT/SGPT) 32 Alkaline Phosphatase 45 Total Protein 6.4 # Albumin 3.5 # Globulin 2.90 Albumin/Globulin Ratio 1.20 Triglycerides Level 45 Cholesterol Level 112 LDL Cholesterol, Calculated 60 HDL Cholesterol 43 Cholesterol/HDL Ratio 2.6 Thyroid Stimulating Hormone (TSH) 0.348 L Medications Medication Current Medications IV Flush (NS 3 ml) 3 ml PER PROTOCOL IV ; Start 12/20/18 at 11:30 Ondansetron HCl (Zofran Inj) 4 mg Q6H PRN IV NAUSEA/VOMITING Last administered on 12/21/18 01:19; Admin Dose 4 MG; Start 12/20/18 at 11:30 Acetaminophen (Tylenol Tab) 650 mg Q6H PRN PO .PAIN 1-3 OR TEMP Last admi nistered on 12/20/18at 14:49; Admin Dose 650 MG; Start 12/20/18 at 11:30 Acetaminophen/ Hydrocodone Bitart ([place] (5/325)) 1 tab Q6H PRN PO .MOD PAIN 4- 6 Last administered on 12/21/18at 09:26; Admin Dose 1 TAB; Start 12/20/18 at 11:30 Morphine Sulfate (morphine) 2 mg Q4H PRN IV .SEVERE PAIN 7-10 Last administered on 12/21/18at 11:59; Admin Dose 2 MG; Start 12/20/18 at 11:30 Docusate Sodium (Colace) 100 mg Q12H PRN PO .CONSTIPATION; Start 12/20/18 at 11:30 Magnesium Hydroxide (Milk Of Mag) 30 ml DAILY PRN PO .CONSTIPATION; Start 12/20/18 at 11:30 Heparin Sodium (Porcine) (Heparin (5000 Units/1ml)) 5,000 unit Q12 SC Last administered on 12/21/18at 08:03; Admin Dose 5,000 UNIT; Start 12/20/18 at 21:00 Lorazepam (Ativan) 0.5 mg Q6H PRN IV ANXIETY; Start 12/20/18 at 11:30 Sodium Chloride 1,000 ml @ 100 mls/hr Q10H IV Last administered on 12/21/18at 01:58; Admin Dose 100 MLS/HR; Start 12/20/18 at 11:07 Albuterol/ Ipratropium (Duoneb) 3 ml Q4H RESP THERAPY PRN HHN SHORTNESS OF BREATH; Start 12/20/18 at 11:30 Piperacillin Sod/ Tazobactam Sod 100 ml @ 200 mls/hr Q6 IVPB Last administered on 12/21/18at 11:59; Admin Dose 200 MLS/HR; Start 12/20/18 at 12:00 Hydralazine HCl (Apresoline) 10 mg Q6H PRN IV ELEVATED BLOOD PRESSURE; Start 12/20/18 at 11:30 Nitroglycerin (Nitroglycerin (Sl Tab) 0.4 Mg) 1 tab Q5M PRN SL ANGINA; Start 12/20/18 at 11:30 Pantoprazole (Protonix Tab) 40 mg DAILY@06 PO Last administered on 12/21/18at 06:05; Admin Dose 40 MG; Start 12/21/18 at 06:00 MIRANDA LAND Dec 21, 2018 13:23
--- NOTE | 2018-12-21 21:18 | PN ---
Date/Time of Note Date/Time of Note DATE: 12/21/18 TIME: 21:16 Assessment/Plan Lines/Catheters IV Catheter Type (from Nrs): Peripheral IV Assessment/Plan Chief Complaint/Hosp Course 1. Acute abdominal pain, improving 2. Acute nausea vomiting, improved 3. Acute leukocytosis with bandemia 4. CT with appendicitis and appendicolith with perforation and pus throughout abdomen status post laparoscopic appendectomy and washout -IV antibiotics -IV fluids -Diet as tolerated 5. BMI 31 -Encourage nutrition and exercise optimization eventually 6. Regular alcohol use with history of alcohol poisoning -Highly encouraged cessation 7. Abnormal bilirubin and amylase may be secondary to acute process -Trend Thank you Subjective 24 Hr Interval Summary No fevers or chills. Some pain. No nausea vomiting. On clears. No chest pain. No shortness of breath. No cough, seizure, blood per mouth or rectum, dysuria, visual or neurologic changes. WBC improved however bandemia. Exam/Review of Systems Vital Signs Vitals Vital Signs Date Temp Pulse Resp B/P (MAP) Pulse Ox O2 O2 Flow FiO2 Time Delivery Rate 12/21/18 3.0 18:09 12/21/18 97.8 100 19 145/80 96 Room Air 14:00 (101) Intake and Output 12/20/18 12/20/18 12/21/18 1515:00 23:00 07:00 IntakeIntake Total 100 ml 100 ml 1520 ml OutputOutput Total 595 ml BalanceBalance 100 ml 100 ml 925 ml Exam Free Text/Dictation Constitutional: alert, oriented, obese; No distress Psych: nl mood/affect; No anxiety Head: normocephalic, atraumatic Eyes: nl conjunctiva, EOMI, nl sclera, PERRL ENMT: nl external ears & nose, nl lips & teeth, nl nasal mucosa & septum Neck: supple, non-tender; No jvd Respiratory: normal air movement; No congested cough, No labored breathing, No wheezing Cardiovascular: regular rate and rhythm; No edema Gastrointestinal: soft, no rebound or guarding, tender; No firm Genitourinary - Male: nl penis, nl scrotum Musculoskeletal: nl extremities to inspection; No joint tenderness Extremities: normal pulses; No calf tenderness, No edema Neurological: nl mental status, nl speech, nl strength Skin: nl turgor; No rash or lesions, No diaphoresis Lymph: nl lymph nodes, nontender Results Result Diagram: 12/21/18 0613 12/21/18 0613 AMY ARAGON MD Dec 21, 2018 21:18
[2018-12-22] MEDS: morphine 2 MG INJ IV PRN ×3 (00:08→08:01)
[2018-12-22 02:00] VITALS: BP 164/79; PULSE 90; RESP 18
[2018-12-22] MEDS: HYDROCODONE/APAP (5/325) TAB PO PRN (03:00)
[2018-12-22] MEDS: PIPER-TAZO 3.375 GM IV (PMX) 100 ML IVPB SCH ×3 (05:25→17:39)
[2018-12-22] MEDS: PANTOPRAZOLE (EC) 40 MG TAB PO SCH (05:25)
[2018-12-22] MEDS: ONDANSETRON 4 MG INJ IV PRN (07:56)
--- NOTE | 2018-12-22 08:12 | PAC ---
Date/Time of Note Date/Time of Note DATE: 12/22/18 TIME: 08:12 Post-Anesthesia Notes Post-Anesthesia Note Last documented vital signs Vital Signs Date Temp Pulse Resp B/P (MAP) Pulse Ox O2 O2 Flow FiO2 Time Delivery Rate 12/22/18 3.0 04:54 12/22/18 98.7 90 18 164/79 94 02:00 (107) 12/21/18 Room Air 14:00 Activity: WNL Respiratory function: WNL Cardiovascular function: WNL Mental status: Baseline Pain reasonably controlled: Yes Hydration appropriate: Yes Nausea/Vomiting absent: Yes MAYANK SALGUERO Dec 22, 2018 08:12
[2018-12-22 08:38] VITALS: BP 141/79; PULSE 101; RESP 18
[2018-12-22] MEDS: HEPARIN 5,000 UNIT/1 ML VIAL SC SCH ×2 (09:19→20:43)
[2018-12-22] MEDS: MAGNESIUM HYDROXIDE 30ML CUP PO PRN (09:22)
[2018-12-22] MEDS: morphine 4 MG/ML VIAL IV PRN ×4 (11:37→20:43)
[2018-12-22] MEDS: SOD CHLORIDE 0.9% 1,000 ML IV SCH ×2 (11:37→22:50)
[2018-12-22 14:22] VITALS: BP 131/73; PULSE 98; RESP 18
--- NOTE | 2018-12-22 15:16 | PN ---
Date/Time of Note Date/Time of Note DATE: 12/22/18 TIME: 15:14 Assessment/Plan VTE Prophylaxis Risk score (from Ns)>0 risk: 3 SCD applied (from Ns): Yes Pharmacological prophylaxis: NA/contraindicated Pharm contraindication: low risk/ambulating Lines/Catheters IV Catheter Type (from [facility]): Peripheral IV Assessment/Plan Assessment/Plan 23-year-old obese man coming with abdominal pain nausea vomiting for 1 day with findings of acute appendicitis #Acute appendictis: -Postoperative 12/20 for acute appendicitis; found to be perforated -Still with poorly controlled pain - Otherwise ambulatory, on room air, tolerating clear liquids. - Will continue antibiotics -Diet per surgery recommendations Result Diagram: 12/22/18 0548 12/22/18 0548 Subjective 24 Hr Interval Summary Free Text/Dictation No acute overnight events. Patient continues to require frequent ATC IV morphine. Says [place] makes his stomach hurt. Tolerating clear liquid diet. Off oxygen, ambulatory. Passing gas, no bowel movement yet. Exam/Review of Systems Exam Vitals Vital Signs Date Temp Pulse Resp B/P (MAP) Pulse Ox O2 O2 Flow FiO2 Time Delivery Rate 12/22/18 99.4 98 18 131/73 96 Room Air 14:22 (92) 12/22/18 3.0 04:54 Intake and Output 12/21/18 12/21/18 12/22/18 1515:00 23:00 07:00 IntakeIntake Total 1100 ml 1050 ml 1830 ml OutputOutput Total 465 ml 450 ml 370 ml BalanceBalance 635 ml 600 ml 1460 ml Exam GENERAL: Obese man lying in bed, in no acute distress Neck: Supple Respiratory: Clear to auscultation bilaterally. There are no rales, wheezes or rhonchi. HEART: Regular rate and rhythm. No murmurs, clicks, rubs or gallops. ABDOMEN: Normal active bowel sounds. No distention. No organomegaly. LUANNE drain in place. M/S: No lower extremity edema bilaterally Neuro: No focal deficits Results Results 24hrs Laboratory Tests Test 12/22/18 05:48 White Blood Count 12.0 H Red Blood Count 4.14 L Hemoglobin 13.1 L Hematocrit 39.1 L Mean Corpuscular Volume 94.4 Mean Corpuscular Hemoglobin 31.6 Mean Corpuscular Hemoglobin Concent 33.5 Red Cell Distribution Width 12.3 Platelet Count 208 Mean Platelet Volume 10.1 Immature Granulocytes % 0.400 Neutrophils % 80.5 H Lymphocytes % 11.4 L Monocytes % 7.5 Eosinophils % 0.0 Basophils % 0.2 Nucleated Red Blood Cells % 0.0 Immature Granulocytes # 0.050 H Neutrophils # 9.6 H Lymphocytes # 1.4 Monocytes # 0.9 Eosinophils # 0.0 Basophils # 0.0 Nucleated Red Blood Cells # 0.0 Sodium Level 138 Potassium Level 3.7 Chloride Level 105 Carbon Dioxide Level 29 Anion Gap 4 L Blood Urea Nitrogen 15 Creatinine 0.66 Est Glomerular Filtrat Rate mL/min > 60 Glucose Level 115 Calcium Level 8.8 Medications Medication Current Medications IV Flush (NS 3 ml) 3 ml PER PROTOCOL IV ; Start 12/20/18 at 11:30 Ondansetron HCl (Zofran Inj) 4 mg Q6H PRN IV NAUSEA/VOMITING Last administered on 12/22/18 07:56; Admin Dose 4 MG; Start 12/20/18 at 11:30 Acetaminophen (Tylenol Tab) 650 mg Q6H PRN PO .PAIN 1-3 OR TEMP Last administered on 12/20/18 14:49; Admin Dose 650 MG; Start 12/20/18 at 11:30 Acetaminophen/ Hydrocodone Bitart ([place] (5/325)) 1 tab Q6H PRN PO .MOD PAIN 4- 6 Last administered on 12/22/18 03:00; Admin Dose 1 TAB; Start 12/20/18 at 11:30 Docusate Sodium (Colace) 100 mg Q12H PRN PO .CONSTIPATION; Start 12/20/18 at 11:30 Magnesium Hydroxide (Milk Of Mag) 30 ml DAILY PRN PO .CONSTIPATION Last administered on 12/22/18 09:22; Admin Dose 30 ML; Start 12/20/18 at 11:30 Heparin Sodium (Porcine) (Heparin (5000 Units/1ml)) 5,000 unit Q12 SC Last administered on 12/22/18 09:19; Admin Dose 5,000 UNIT; Start 12/20/18 at 21:00 Sodium Chloride 1,000 ml @ 100 mls/hr Q10H IV Last administered on 12/22/18 11:37; Admin Dose 100 MLS/HR; Start 12/20/18 at 11:07 Albuterol/ Ipratropium (Duoneb) 3 ml Q4H RESP THERAPY PRN HHN SHORTNESS OF BREATH; Start 12/20/18 at 11:30 Piperacillin Sod/ Tazobactam Sod 100 ml @ 200 mls/hr Q6 IVPB Last administered on 12/22/18at 11:36; Admin Dose 200 MLS/HR; Start 12/20/18 at 12:00 Hydralazine HCl (Apresoline) 10 mg Q6H PRN IV ELEVATED BLOOD PRESSURE; Start 12/20/18 at 11:30 Nitroglycerin (Nitroglycerin (Sl Tab) 0.4 Mg) 1 tab Q5M PRN SL ANGINA; Start 12/20/18 at 11:30 Pantoprazole (Protonix Tab) 40 mg DAILY@06 PO Last administered on 12/22/18at 05:25; Admin Dose 40 MG; Start 12/21/18 at 06:00 Morphine Sulfate (morphine) 4 mg Q3H PRN IV .SEVERE PAIN 7-10 Last administered on 12/22/18at 14:37; Admin Dose 4 MG; Start 12/22/18 at 11:30 HYACINTH BRUNO MD Dec 22, 2018 15:16
[2018-12-22 20:55] VITALS: BP 152/80; PULSE 94; RESP 18
--- NOTE | 2018-12-22 22:54 | PN ---
Date/Time of Note Date/Time of Note DATE: 12/22/18 TIME: 22:52 Assessment/Plan Lines/Catheters IV Catheter Type (from Nrs): Peripheral IV Assessment/Plan Chief Complaint/Hosp Course 1. Acute abdominal pain, improving 2. Acute nausea vomiting, improved 3. Acute leukocytosis with bandemia 4. CT with appendicitis and appendicolith with perforation and pus throughout abdomen status post laparoscopic appendectomy and washout -IV antibiotics -IV fluids -Diet as tolerated 5. BMI 31 -Encourage nutrition and exercise optimization eventually 6. Regular alcohol use with history of alcohol poisoning -Highly encouraged cessation 7. Abnormal bilirubin and amylase may be secondary to acute process -Trend Thank you Subjective 24 Hr Interval Summary No fevers or chills. Some pain. No nausea vomiting. On clears. No chest pain. No shortness of breath. No cough, seizure, blood per mouth or rectum, dysuria, visual or neurologic changes. WBC improved however bandemia. Exam/Review of Systems Vital Signs Vitals Vital Signs Date Temp Pulse Resp B/P (MAP) Pulse Ox O2 O2 Flow FiO2 Time Delivery Rate 12/22/18 98.9 94 18 152/80 97 20:55 (104) 12/22/18 Room Air 14:22 12/22/18 3.0 04:54 Intake and Output 12/21/18 12/21/18 12/22/18 1515:00 23:00 07:00 IntakeIntake Total 1100 ml 1050 ml 1830 ml OutputOutput Total 465 ml 450 ml 370 ml BalanceBalance 635 ml 600 ml 1460 ml Exam Free Text/Dictation Constitutional: alert, oriented, obese; No distress Psych: nl mood/affect; No anxiety Head: normocephalic, atraumatic Eyes: nl conjunctiva, EOMI, nl sclera, PERRL ENMT: nl external ears & nose, nl lips & teeth, nl nasal mucosa & septum Neck: supple, non-tender; No jvd Respiratory: normal air movement; No congested cough, No labored breathing, No wheezing Cardiovascular: regular rate and rhythm; No edema Gastrointestinal: soft, no rebound or guarding, tender; No firm Genitourinary - Male: nl penis, nl scrotum Musculoskeletal: nl extremities to inspection; No joint tenderness Extremities: normal pulses; No calf tenderness, No edema Neurological: nl mental status, nl speech, nl strength Skin: nl turgor; No rash or lesions, No diaphoresis Lymph: nl lymph nodes, nontender Results Result Diagram: 12/22/18 0548 12/22/18 0548 AMY ARAGON MD Dec 22, 2018 22:54
[2018-12-22] MEDS: ACETAMINOPHEN 325 MG TAB PO PRN (22:58)
[2018-12-23] MEDS: PIPER-TAZO 3.375 GM IV (PMX) 100 ML IVPB SCH ×4 (00:04→18:14)
[2018-12-23] MEDS: morphine 4 MG/ML VIAL IV PRN ×7 (00:04→22:12)
[2018-12-23 03:29] VITALS: BP 134/75; PULSE 79; RESP 18
[2018-12-23] MEDS: MAGNESIUM HYDROXIDE 30ML CUP PO PRN (05:33)
[2018-12-23] MEDS: PANTOPRAZOLE (EC) 40 MG TAB PO SCH (06:11)
[2018-12-23 07:56] VITALS: BP 126/62; PULSE 89; RESP 18
[2018-12-23] MEDS: HEPARIN 5,000 UNIT/1 ML VIAL SC SCH ×2 (08:43→20:34)
[2018-12-23] MEDS: SOD CHLORIDE 0.9% 1,000 ML IV SCH ×2 (08:45→19:07)
--- NOTE | 2018-12-23 13:26 | PN ---
Date/Time of Note Date/Time of Note DATE: 12/23/18 TIME: 13:24 Assessment/Plan VTE Prophylaxis Risk score (from Ns)>0 risk: 3 SCD applied (from Ns): Yes Pharmacological prophylaxis: NA/contraindicated Pharm contraindication: surgical contra Lines/Catheters [facility] Peripheral IV Assessment/Plan Assessment/Plan 23-year-old obese man coming with abdominal pain nausea vomiting for 1 day with findings of acute appendicitis #Acute appendictis: -Postoperative 12/20 for acute appendicitis; found to be perforated -Still with poorly controlled pain - Otherwise ambulatory, on room air, tolerating clear liquids. - Will continue antibiotics -Diet per surgery recommendations Result Diagram: 12/23/1852212/23/18522 Subjective 24 Hr Interval Summary Free Text/Dictation No acute overnight events. Patient ambulating well, tolerating clear liquids, on room air. He is taking IV morphine around the clock but currently denies pain and appears comfortable. Exam/Review of Systems Exam Vitals Vital Signs Date Temp Pulse Resp B/P (MAP) Pulse Ox O2 O2 Flow FiO2 Time Delivery Rate 12/23/18 98.3 89 18 126/62 98 Room Air 07:56 (83) 12/22/18 3.0 04:54 Intake and Output 12/22/18 12/22/18 12/23/18 1515:00 23:00 07:00 IntakeIntake Total 1240 ml 1220 ml 1380 ml OutputOutput Total 55 ml 150 ml 400 ml BalanceBalance 1185 ml 1070 ml 980 ml Exam GENERAL: Obese man lying in bed, in no acute distress Neck: Supple Respiratory: Clear to auscultation bilaterally. There are no rales, wheezes or rhonchi. HEART: Regular rate and rhythm. No murmurs, clicks, rubs or gallops. ABDOMEN: Normoactive bowel sounds. No distention. Surgical incisions clean/dry/intact. LUANNE drain in place with serous output. M/S: No lower extremity edema bilaterally Results Results 24hrs Laboratory Tests Test 12/23/18 05:23 White Blood Count 11.8 H Red Blood Count 4.02 L Hemoglobin 12.8 L Hematocrit 37.5 L Mean Corpuscular Volume 93.3 Mean Corpuscular Hemoglobin 31.8 Mean Corpuscular Hemoglobin Concent 34.1 Red Cell Distribution Width 11.8 Platelet Count 250 # Mean Platelet Volume 9.9 Immature Granulocytes % 0.500 H Neutrophils % 71.9 Lymphocytes % 18.0 Monocytes % 9.0 Eosinophils % 0.3 Basophils % 0.3 Nucleated Red Blood Cells % 0.0 Immature Granulocytes # 0.060 H Neutrophils # 8.5 H Lymphocytes # 2.1 Monocytes # 1.1 H Eosinophils # 0.0 Basophils # 0.0 Nucleated Red Blood Cells # 0.0 Sodium Level 137 Potassium Level 3.8 Chloride Level 101 Carbon Dioxide Level 29 Anion Gap 7 Blood Urea Nitrogen 12 Creatinine 0.67 Est Glomerular Filtrat Rate mL/min > 60 Glucose Level 110 Calcium Level 8.5 Medications Medication Current Medications IV Flush (NS 3 ml) 3 ml PER PROTOCOL IV ; Start 12/20/18 at 11:30 Ondansetron HCl (Zofran Inj) 4 mg Q6H PRN IV NAUSEA/VOMITING Last administered on 12/22/18 07:56; Admin Dose 4 MG; Start 12/20/18 at 11:30 Acetaminophen (Tylenol Tab) 650 mg Q6H PRN PO .PAIN 1-3 OR TEMP Last administered on 12/22/18 22:58; Admin Dose 650 MG; Start 12/20/18 at 11:30 Acetaminophen/ Hydrocodone Bitart ([place] (5/325)) 1 tab Q6H PRN PO .MOD PAIN 4- 6 Last administered on 12/22/18 03:00; Admin Dose 1 TAB; Start 12/20/18 at 11:30 Docusate Sodium (Colace) 100 mg Q12H PRN PO .CONSTIPATION Last administered on 12/22/18 17:37; Admin Dose 100 MG; Start 12/20/18 at 11:30 Magnesium Hydroxide (Milk Of Mag) 30 ml DAILY PRN PO .CONSTIPATION Last administered on 12/23/18 05:33; Admin Dose 30 ML; Start 12/20/18 at 11:30 Heparin Sodium (Porcine) (Heparin (5000 Units/1ml)) 5,000 unit Q12 SC Last administered on 12/23/18 08:43; Admin Dose 5,000 UNIT; Start 12/20/18 at 21:00 Sodium Chloride 1,000 ml @ 100 mls/hr Q10H IV Last administered on 12/23/18 08:45; Admin Dose 100 MLS/HR; Start 12/20/18 at 11:07 Albuterol/ Ipratropium (Duoneb) 3 ml Q4H RESP THERAPY PRN HHN SHORTNESS OF BREATH; Start 12/20/18 at 11:30 Piperacillin Sod/ Tazobactam Sod 100 ml @ 200 mls/hr Q6 IVPB Last administered on 12/23/18at 05:33; Admin Dose 200 MLS/HR; Start 12/20/18 at 12:00 Hydralazine HCl (Apresoline) 10 mg Q6H PRN IV ELEVATED BLOOD PRESSURE; Start 12/20/18 at 11:30 Nitroglycerin (Nitroglycerin (Sl Tab) 0.4 Mg) 1 tab Q5M PRN SL ANGINA; Start 12/20/18 at 11:30 Pantoprazole (Protonix Tab) 40 mg DAILY@06 PO Last administered on 12/23/18at 06:11; Admin Dose 40 MG; Start 12/21/18 at 06:00 Morphine Sulfate (morphine) 4 mg Q3H PRN IV .SEVERE PAIN 7-10 Last administered on 12/23/18at 12:10; Admin Dose 4 MG; Start 12/22/18 at 11:30 Simethicone (Mylicon) 80 mg Q6H PRN PO DISTENSION/GAS/BLOATING; Start 12/23/18 at 06:00 HYACINTH BRUNO MD Dec 23, 2018 13:26
--- NOTE | 2018-12-23 13:39 | PN ---
Date/Time of Note Date/Time of Note DATE: 12/23/18 TIME: 13:37 Assessment/Plan Lines/Catheters IV Catheter Type (from Nrs): Peripheral IV Assessment/Plan Chief Complaint/Hosp Course 1. Acute abdominal pain, improving 2. Acute nausea vomiting, improved 3. Acute leukocytosis with bandemia: Improving 4. CT with appendicitis and appendicolith with perforation and pus throughout abdomen status post laparoscopic appendectomy and washout -Continue IV antibiotics -Diet as tolerated -Drain care 5. BMI 31 -Encourage nutrition and exercise optimization eventually 6. Regular alcohol use with history of alcohol poisoning -Highly encouraged cessation 7. Abnormal bilirubin and amylase may be secondary to acute process Thank you. Patient seen and examined in collaboration with Dr. Ean Reeder. Subjective 24 Hr Interval Summary Feels well. + Bowel function. Tolerating diet. No fevers, chills, sob, congested cough, cp, palpitations, lopez, dizziness, nausea, vomiting, diarrhea, dysuria. Exam/Review of Systems Vital Signs Vitals Vital Signs Date Temp Pulse Resp B/P (MAP) Pulse Ox O2 O2 Flow FiO2 Time Delivery Rate 12/23/18 98.3 89 18 126/62 98 Room Air 07:56 (83) 12/22/18 3.0 04:54 Intake and Output 12/22/18 12/22/18 12/23/18 1515:00 23:00 07:00 IntakeIntake Total 1240 ml 1220 ml 1380 ml OutputOutput Total 55 ml 150 ml 400 ml BalanceBalance 1185 ml 1070 ml 980 ml Exam Free Text/Dictation Constitutional: alert, oriented, obese; No distress Psych: nl mood/affect; No anxiety Head: normocephalic, atraumatic Eyes: nl conjunctiva, EOMI, nl sclera, PERRL ENMT: nl external ears & nose, nl lips & teeth, nl nasal mucosa & septum Neck: supple, non-tender; No jvd Respiratory: normal air movement; No congested cough, No labored breathing, No wheezing Cardiovascular: regular rate and rhythm; No edema Gastrointestinal: soft, no rebound or guarding, tender francine-incisionalincision sites dry without drainage/discoloration/bruising; LUANNE drain: Serous No firm Genitourinary - Male: nl penis, nl scrotum Musculoskeletal: nl extremities to inspection; No joint tenderness Extremities: normal pulses; No calf tenderness, No edema Neurological: nl mental status, nl speech, nl strength Skin: nl turgor; No rash or lesions, No diaphoresis Lymph: nl lymph nodes, nontender Results Result Diagram: 12/23/18 0523 12/23/18 0523 RAINER ROUSE NP Dec 23, 2018 13:39
[2018-12-23 14:55] VITALS: BP 134/64; PULSE 92; RESP 18
[2018-12-23 20:20] VITALS: BP 140/67; PULSE 90; RESP 18
[2018-12-24] MEDS: SOD CHLORIDE 0.9% 1,000 ML IV SCH ×2 (00:24→11:49)
[2018-12-24] MEDS: PIPER-TAZO 3.375 GM IV (PMX) 100 ML IVPB SCH ×4 (00:25→17:14)
[2018-12-24 02:25] VITALS: BP 119/59; PULSE 78; RESP 18
[2018-12-24] MEDS: morphine 4 MG/ML VIAL IV PRN ×2 (03:43→08:20)
[2018-12-24] MEDS: PANTOPRAZOLE (EC) 40 MG TAB PO SCH (05:45)
[2018-12-24] MEDS: HEPARIN 5,000 UNIT/1 ML VIAL SC SCH (08:20)
--- NOTE | 2018-12-24 12:32 | PN ---
Date/Time of Note Date/Time of Note DATE: 12/24/18 TIME: 12:30 Assessment/Plan Lines/Catheters IV C[facility]ter Type (from [facility]): Peripheral IV Assessment/Plan Chief Complaint/Hosp Course 1. Acute abdominal pain, improved 2. Acute nausea vomiting, resolved 3. Acute leukocytosis with bandemia: Resolved 4. CT with appendicitis and appendicolith with perforation and pus throughout abdomen status post laparoscopic appendectomy and washout -Continue IV antibiotics -Diet as tolerated -Drain care -May be discharged per medical team with follow-up in office in 1 week. Patient may be discharged with drain, antibiotics oral to complete 5 days. 5. BMI 31 -Encourage nutrition and exercise optimization eventually 6. Regular alcohol use with history of alcohol poisoning -Highly encouraged cessation 7. Abnormal bilirubin and amylase may be secondary to acute process Thank you. Patient seen and examined in collaboration with Dr. Ean Reeder. Subjective 24 Hr Interval Summary Feels well. No fevers, chills, sob, congested cough, cp, palpitations, lopez, dizziness, n/v/d/dysuria. Exam/Review of Systems Vital Signs Vitals Vital Signs Date Temp Pulse Resp B/P (MAP) Pulse Ox O2 O2 Flow FiO2 Time Delivery Rate 12/24/18 98.1 78 18 119/59 97 02:25 (79) 12/23/18 Room Air 14:55 12/22/18 3.0 04:54 Intake and Output 12/23/18 12/23/18 12/24/18 1515:00 23:00 07:00 IntakeIntake Total 1300 ml 440 ml 2650 ml OutputOutput Total 130 ml BalanceBalance 1300 ml 440 ml 2520 ml Exam Free Text/Dictation Constitutional: alert, oriented, obese; No distress Psych: nl mood/affect; No anxiety Head: normocephalic, atraumatic Eyes: nl conjunctiva, EOMI, nl sclera, PERRL ENMT: nl external ears & nose, nl lips & teeth, nl nasal mucosa & septum Neck: supple, non-tender; No jvd Respiratory: normal air movement; No congested cough, No labored breathing, No wheezing Cardiovascular: regular rate and rhythm; No edema Gastrointestinal: soft, no rebound or guarding, tender francine-incisionalincision sites dry without drainage/discoloration/bruising; LUANNE drain: Serous No firm Genitourinary - Male: nl penis, nl scrotum Musculoskeletal: nl extremities to inspection; No joint tenderness Extremities: normal pulses; No calf tenderness, No edema Neurological: nl mental status, nl speech, nl strength Skin: nl turgor; No rash or lesions, No diaphoresis Lymph: nl lymph nodes, nontender Results Result Diagram: 12/24/18 0600 12/24/18 0600 RAINER ROUSE NP Dec 24, 2018 12:32
[2018-12-24] MEDS ORDERED: CIPR500T4 PO (14:35)
[2018-12-24] MEDS ORDERED: METR-122 PO (14:35)
--- NOTE | 2018-12-24 14:35 | PDOCDIS ---
Discharge Instructions DIAGNOSIS Discharge Diagnosis Perforated appendicitis CONDITION [id number] Patient Condition: [id number] Good HOME CARE INSTRUCTIONS: [id number] Diet Instructions: [id number] Regular ACTIVITY: [id number] Activity Restrictions: [id number] No Restrictions FOLLOW UP/APPOINTMENTS Follow-up Plan 1. Keep your abdominal drain clean and dry. Empty the bulb as instructed when it gets full and monitor how much liquid you drain every day. 2. Take 5 more days of antibiotics as prescribed. 3. For pain, take ibuprofen up to 800mg at a time every 6 hours and tylenol 650mg. Don't take more than 4000 mg of tylenol daily. 4. See Dr. Reeder in clinic as scheduled for drain removal and staple removal. HYACINTH BRUNO MD Dec 24, 2018 14:35
[2018-12-24 15:18] VITALS: BP 129/60; PULSE 85; RESP 18
--- NOTE | 2018-12-24 17:37 | DS ---
Date/Time of Note Date/Time of Note DATE: 12/24/18 TIME: 17:35 Discharge Summary Admission/Discharge Info Admit Date/Time Dec 20, 2018 at 07:10 Discharge Date/Time Dec 24, 2018 Discharge Diagnosis Perforated appendicitis Patient Condition: Good Consults Dr. Reeder, general surgery Procedures 12/20/18: Laparoscopic appendectomy Hx of Present Illness 23-year-old man with no significant past medical history who comes in presenting with right-sided abdominal pain. Patient also had some nonbilious nonbloody vomiting and with nausea times 1 day. Patient states he took his temperature at home and it was as high as 100.3. No upper or lower GI bleeding, diarrhea constipation, chest pain or shortness of breath. The patient came in today he had a CT scan performed that showed signs of acute appendicitis without any free air abscess noted. A call was made out to surgery team to come evaluate the patient. Patient's white blood cell count was also elevated and patient was given IV antibiotics as well. Hospital Course The night of admission he was taken to the OR by Dr. Reeder; found to have perforated appendicitis. Got abdominal washout and lap appy with drain left in place. Had slow recovery postoperatively, but eventually was ambulatory, tolerating full diet, pain well controlled. Plan for discharge on cipro/flagyl for 5 more days. The patient will care for his LUANNE drain at home and follow up with Dr. Reeder in clinic. Home Meds Active Scripts Metronidazole* (Metronidazole*) 500 Mg Tablet, 500 MG PO Q8, #15 TAB Prov:HYACINTH BRUNO MD 12/24/18 Ciprofloxacin Hcl* (Ciprofloxacin Hcl*) 500 Mg Tablet, 500 MG PO BID, #10 TAB Prov:HYACINTH BRUNO MD 12/24/18 Follow-up Plan 1. Keep your abdominal drain clean and dry. Empty the bulb as instructed when it gets full and monitor how much liquid you drain every day. 2. Take 5 more days of antibiotics as prescribed. 3. For pain, take ibuprofen up to 800mg at a time every 6 hours and tylenol 650mg. Don't take more than 4000 mg of tylenol daily. 4. See Dr. Reeder in clinic as scheduled for drain removal and staple removal. Primary Care Provider Care Physician No Primary Time spent on discharge: > 30 minutes Pending Labs Laboratory Tests Test 12/24/18 06:00 White Blood Count 10.1 10^3/ul (4.8-10.8) Red Blood Count 4.05 10^6/ul (4.70-6.10) Hemoglobin 12.7 g/dl (14.0-18.0) Hematocrit 37.7 % (42.0-52.0) Mean Corpuscular Volume 93.1 fl (82.0-101.0) Mean Corpuscular Hemoglobin 31.4 pg (29.0-33.0) Mean Corpuscular Hemoglobin Concent 33.7 g/dl (32.0-37.0) Red Cell Distribution Width 11.6 % (11.5-14.5) Platelet Count 269 10^3/UL (140-415) Mean Platelet Volume 9.8 fl (7.4-10.4) Immature Granulocytes % 0.900 % (0.001-0.429) Neutrophils % 66.5 % (39.0-77.0) Lymphocytes % 20.3 % (15.0-51.0) Monocytes % 10.4 % (0.0-11.0) Eosinophils % 1.4 % (0.0-7.0) Basophils % 0.5 % (0.0-2.0) Nucleated Red Blood Cells % 0.0 /100WBC (0.0-0.0) Immature Granulocytes # 0.090 10^3/ul (0.0-0.031) Neutrophils # 6.7 10^3/ul (1.6-7.5) Lymphocytes # 2.0 10^3/ul (0.8-2.9) Monocytes # 1.1 10^3/ul (0.3-0.9) Eosinophils # 0.1 10^3/ul (0.0-0.5) Basophils # 0.1 10^3/ul (0.0-0.1) Nucleated Red Blood Cells # 0.0 10^3/ul (0.0-0.0) Sodium Level 138 mmol/L (135-144) Potassium Level 3.4 mmol/L (3.5-5.1) Chloride Level 100 mmol/L (97-110) Carbon Dioxide Level 30 mmol/L (21-31) Anion Gap 8 (5-13) Blood Urea Nitrogen 8 mg/dl (7-20) Creatinine 0.64 mg/dl (0.61-1.24) Est Glomerular Filtrat Rate mL/min > 60 mL/min (>60) Glucose Level 99 mg/dl (70-220) Calcium Level 8.5 mg/dl (8.4-10.2) HYACINTH BRUNO MD Dec 24, 2018 17:37
== END 2018-12-24 18:19 | disposition home or self-care (01) | DRG 340 ==
LOC: FTE 22:40 → PP2 12-20 07:10
PROVIDERS: ADMIT Internal Medicine; ATTEND Internal Medicine
PROC: 0DTJ4ZZ Resection of Appendix, Percutaneous Endoscopic Approach (ICD-10-PCS; principal; 2018-12-20 22:00)
DX: K35.32 Acute appendicitis with perforation, localized peritonitis, and gangrene, without abscess (principal); K38.1 Appendicular concretions
CPT/HCPCS: 36415; 74177; 80048; 80053; 80061; 81001; 83036; 83690; 83735; 84100; 84439; 84443; 85025; 85610; 85730; 88304; 96374; 96375; J0131; J1170; J1644; J2001; J2270; J2405; J2543; J2795; J3010; J7030; Q9967